=== PATIENT | male | born 1950 | race American Indian/Alaskan Native ===

== ENCOUNTER 2018-08-16 17:37 | Emergency (ER) | payer MEDICARE, OTHER ==
[2018-08-16] MEDS ORDERED: ZOFRAN IV ONE (18:41)
[2018-08-16] MEDS ORDERED: NACL 0.9% 1000 ML 1,000 ML IV ONE ×2 (18:41→20:22)
--- NOTE | 2018-08-16 19:28 | Emergency Department Report ---
ED Altered Mental Status HPI - General Chief Complaint: Altered Mental Status Stated Complaint: DIZINESS Time Seen by Provider: 08/16/18 18:19 Source: EMS Mode of arrival: Stretcher Limitations: Altered Mental Status - History of Present Illness Initial Comments: 74-year-old who presents to ED with episode of altered mental status. Patient has history of stage IV liver cancer. Recently received news from his oncologist 2 weeks ago that no additional treatment could be done. White states patient has been nauseated all day, had one episode of emesis earlier. States he decided to get up and go to the bathroom. States he sat on the commode, and possibly had a seizure. states his entire body stiffened up. His arms, legs, neck and torso were extended. states patient was unresponsive during this time, states it lasted for possibly 5 minutes, after which patient was able to slowly respond to her. However she states he still seemed confused at this time. Denies urinary incontinence. EMS was called, upon their arrival patient was hypotensive. IV fluids given and patient transported to ED. Patient has an order for DO NOT RESUSCITATE. MD Complaint: altered mental status -: This afternoon Severity: moderate Context: cancer, liver disease Associated Symptoms: nausea/vomiting. denies: chest pain, fever/chills, headaches, shortness of breath - Related Data Allergies Allergy/AdvReac Type Severity Reaction Status Date / Time No Known Allergies Allergy Verified 08/16/18 23:45 ED Review of Systems ROS: Stated complaint: DIZINESS Other details as noted in HPI Comment: All other systems reviewed and negative Constitutional: denies: chills, fever Respiratory: denies: shortness of breath Cardiovascular: denies: chest pain Gastrointestinal: abdominal pain (chronic), nausea, vomiting Neurological: denies: headache ED Past Medical Hx - Past Medical History Previous Medical History?: Yes Hx of Cancer: Yes (Liver Cancer) - Surgical History Additional Surgical History: Right chest port - Social History Smoking Status: Unknown if ever smoked Substance Use Type: None ED Physical Exam - General Limitations: Altered Mental Status General appearance: alert, cachectic - Head Head exam: Present: atraumatic, normocephalic - Eye Eye exam: Present: scleral icterus - ENT ENT exam: Present: mucous membranes dry - Neck Neck exam: Present: normal inspection - Respiratory Respiratory exam: Present: normal lung sounds bilaterally. Absent: respiratory distress - Cardiovascular Cardiovascular Exam: Present: regular rate, normal rhythm - GI/Abdominal GI/Abdominal exam: Present: soft, distended. Absent: tenderness - Neurological Exam Neurological exam: Present: alert, oriented X3 - Psychiatric Psychiatric exam: Present: flat affect - Skin Skin exam: Present: warm, dry, intact, normal color ED Course Vital Signs 08/16/18 08/16/18 08/16/18 17:58 19:00 19:35 Temperature 97.4 F L 98.2 F Pulse Rate 92 H 88 91 H Respiratory 12 17 21 Rate Blood Pressure 93/57 95/54 Blood Pressure 91/72 [Right] O2 Sat by Pulse 99 99 100 Oximetry 08/16/18 08/16/18 08/16/18 21:00 22:00 22:41 Temperature 97.6 F Pulse Rate 92 H 94 H 93 H Respiratory 13 15 12 Rate Blood Pressure 91/45 91/54 108/54 Blood Pressure [Right] O2 Sat by Pulse 100 99 100 Oximetry 08/16/18 08/16/18 08/16/18 22:51 23:00 23:10 Temperature Pulse Rate 92 H 96 H 92 H Respiratory 19 14 17 Rate Blood Pressure 108/54 99/60 102/56 Blood Pressure [Right] O2 Sat by Pulse 100 100 100 Oximetry 08/16/18 23:20 Temperature Pulse Rate 93 H Respiratory 17 Rate Blood Pressure 108/63 Blood Pressure [Right] O2 Sat by Pulse 100 Oximetry - Reevaluation(s) Reevaluation #1: 08/16/18 20:19 [facility] all [facility] are [facility]. Spoke w/ Dr Guerrero, ER attending. Accepts transfer. - Lab Data Result diagrams: 08/16/18 19:14 08/16/18 19:14 Lab Results 08/16/18 08/16/18 08/16/18 Range/Units 19:14 19:14 19:14 WBC 13.0 H (4.5-11.0) K/mm3 RBC 2.14 L (3.65-5.03) M/mm3 Hgb 6.5 L (11.8-15.2) gm/dl Hct 19.8 L* (35.5-45.6) % MCV 92 (84-94) fl MCH 30 (28-32) pg MCHC 33 (32-34) % RDW 22.7 H (13.2-15.2) % Plt Count 189 (140-440) K/mm3 Add Manual Diff Complete Total Counted 100 Seg Neuts % (Manual) 87.0 H (40.0-70.0) % Band Neutrophils % 4.0 % Lymphocytes % (Manual) 3.0 L (13.4-35.0) % Reactive Lymphs % (Man) 0 % Monocytes % (Manual) 4.0 (0.0-7.3) % Eosinophils % (Manual) 1.0 (0.0-4.3) % Basophils % (Manual) 0 (0.0-1.8) % Metamyelocytes % 1.0 % Myelocytes % 0 % Promyelocytes % 0 % Blast Cells % 0 % Nucleated RBC % Not Reportable Seg Neutrophils # Man 11.3 H (1.8-7.7) K/mm3 Band Neutrophils # 0.5 K/mm3 Lymphocytes # (Manual) 0.4 L (1.2-5.4) K/mm3 Abs React Lymphs (Man) 0.0 K/mm3 Monocytes # (Manual) 0.5 (0.0-0.8) K/mm3 Eosinophils # (Manual) 0.1 (0.0-0.4) K/mm3 Basophils # (Manual) 0.0 (0.0-0.1) K/mm3 Metamyelocytes # 0.1 K/mm3 Myelocytes # 0.0 K/mm3 Promyelocytes # 0.0 K/mm3 Blast Cells # 0.0 K/mm3 WBC Morphology Not Reportable Hypersegmented Neuts Not Reportable Hyposegmented Neuts Not Reportable Hypogranular Neuts Not Reportable Smudge Cells Not Reportable Toxic Granulation Not Reportable Toxic Vacuolation Not Reportable Dohle Bodies Not Reportable Pelger-Huet Anomaly Not Reportable Clarence Rods Not Reportable Platelet Estimate Consistent w auto Clumped Platelets Not Reportable Plt Clumps, EDTA Not Reportable Large Platelets Not Reportable Giant Platelets Not Reportable Platelet Satelliting Not Reportable Plt Morphology Comment Not Reportable RBC Morphology Not Reportable Dimorphic RBCs Not Reportable Polychromasia Not Reportable Hypochromasia 2+ Poikilocytosis 2+ Anisocytosis 2+ Microcytosis Not Reportable Macrocytosis Not Reportable Spherocytes Not Reportable Pappenheimer Bodies Not Reportable Sickle Cells Not Reportable Target Cells Few Tear Drop Cells Not Reportable Ovalocytes Few Helmet Cells Not Reportable Gray-[place]ilox[place] Bodies Not Reportable [place] Rings Not Reportable Judy Cells 1+ Bite Cells Not Reportable Crenated Cell Not Reportable Elliptocytes Not Reportable Acanthocytes (Spur) Not Reportable Rouleaux Not Reportable Hemoglobin C Crystals Not Reportable Schistocytes Few Malaria parasites Not Reportable Satish Bodies Not Reportable Hem Pathologist Commnt No PT (12.2-14.9) Sec. INR (0.87-1.13) APTT (24.2-36.6) Sec. Sodium 133 L (137-145) mmol/L Potassium 4.0 (3.6-5.0) mmol/L Chloride 97.7 L (98-107) mmol/L Carbon Dioxide 13 L (22-30) mmol/L Anion Gap 26 mmol/L BUN 7 L (9-20) mg/dL Creatinine 1.8 H (0.8-1.5) mg/dL Estimated GFR 38 ml/min BUN/Creatinine Ratio 4 % Glucose 123 H (75-100) mg/dL Lactic Acid (0.7-2.0) mmol/L Calcium 8.1 L (8.4-10.2) mg/dL Total Bilirubin 6.70 H (0.1-1.2) mg/dL AST 75 H (5-40) units/L ALT 26 (7-56) units/L Alkaline Phosphatase 217 H (35-129) units/L Ammonia 98.0 H (25-60) umol/L Total Protein 6.0 L (6.3-8.2) g/dL Albumin 2.2 L (3.9-5) g/dL Albumin/Globulin Ratio 0.6 % Blood Type Antibody Screen Crossmatch 08/16/18 08/16/18 08/16/18 Range/Units 20:55 20:55 20:55 WBC (4.5-11.0) K/mm3 RBC (3.65-5.03) M/mm3 Hgb (11.8-15.2) gm/dl Hct (35.5-45.6) % MCV (84-94) fl MCH (28-32) pg MCHC (32-34) % RDW (13.2-15.2) % Plt Count (140-440) K/mm3 Add Manual Diff Total Counted Seg Neuts % (Manual) (40.0-70.0) % Band Neutrophils % % Lymphocytes % (Manual) (13.4-35.0) % Reactive Lymphs % (Man) % Monocytes % (Manual) (0.0-7.3) % Eosinophils % (Manual) (0.0-4.3) % Basophils % (Manual) (0.0-1.8) % Metamyelocytes % % Myelocytes % % Promyelocytes % % Blast Cells % % Nucleated RBC % Seg Neutrophils # Man (1.8-7.7) K/mm3 Band Neutrophils # K/mm3 Lymphocytes # (Manual) (1.2-5.4) K/mm3 Abs React Lymphs (Man) K/mm3 Monocytes # (Manual) (0.0-0.8) K/mm3 Eosinophils # (Manual) (0.0-0.4) K/mm3 Basophils # (Manual) (0.0-0.1) K/mm3 Metamyelocytes # K/mm3 Myelocytes # K/mm3 Promyelocytes # K/mm3 Blast Cells # K/mm3 WBC Morphology Hypersegmented Neuts Hyposegmented Neuts Hypogranular Neuts Smudge Cells Toxic Granulation Toxic Vacuolation Dohle Bodies Pelger-Huet Anomaly Clarence Rods Platelet Estimate Clumped Platelets Plt Clumps, EDTA Large Platelets Giant Platelets Platelet Satelliting Plt Morphology Comment RBC Morphology Dimorphic RBCs Polychromasia Hypochromasia Poikilocytosis Anisocytosis Microcytosis Macrocytosis Spherocytes Pappenheimer Bodies Sickle Cells Target Cells Tear Drop Cells Ovalocytes Helmet Cells Gray-[place]ox[place] Bodies [place] Rings [place] Cells Bite Cells Crenated Cell Elliptocytes Acanthocytes (Spur) Rouleaux Hemoglobin C Crystals Schistocytes Malaria parasites Satish Bodies Hem Pathologist Commnt PT 30.7 H (12.2-14.9) Sec. INR 2.72 H (0.87-1.13) APTT 45.2 H (24.2-36.6) Sec. Sodium (137-145) mmol/L Potassium (3.6-5.0) mmol/L Chloride (98-107) mmol/L Carbon Dioxide (22-30) mmol/L Anion Gap mmol/L BUN (9-20) mg/dL Creatinine (0.8-1.5) mg/dL Estimated GFR ml/min BUN/Creatinine Ratio % Glucose (75-100) mg/dL Lactic Acid 12.30 H* (0.7-2.0) mmol/L Calcium (8.4-10.2) mg/dL Total Bilirubin (0.1-1.2) mg/dL AST (5-40) units/L ALT (7-56) units/L Alkaline Phosphatase (35-129) units/L Ammonia (25-60) umol/L Total Protein (6.3-8.2) g/dL Albumin (3.9-5) g/dL Albumin/Globulin Ratio % Blood Type B POSITIVE Antibody Screen Negative Crossmatch See Detail 08/16/18 Range/Units 22:41 WBC (4.5-11.0) K/mm3 RBC (3.65-5.03) M/mm3 Hgb (11.8-15.2) gm/dl Hct (35.5-45.6) % MCV (84-94) fl MCH (28-32) pg MCHC (32-34) % RDW (13.2-15.2) % Plt Count (140-440) K/mm3 Add Manual Diff Total Counted Seg Neuts % (Manual) (40.0-70.0) % Band Neutrophils % % Lymphocytes % (Manual) (13.4-35.0) % Reactive Lymphs % (Man) % Monocytes % (Manual) (0.0-7.3) % Eosinophils % (Manual) (0.0-4.3) % Basophils % (Manual) (0.0-1.8) % Metamyelocytes % % Myelocytes % % Promyelocytes % % Blast Cells % % Nucleated RBC % Seg Neutrophils # Man (1.8-7.7) K/mm3 Band Neutrophils # K/mm3 Lymphocytes # (Manual) (1.2-5.4) K/mm3 Abs React Lymphs (Man) K/mm3 Monocytes # (Manual) (0.0-0.8) K/mm3 Eosinophils # (Manual) (0.0-0.4) K/mm3 Basophils # (Manual) (0.0-0.1) K/mm3 Metamyelocytes # K/mm3 Myelocytes # K/mm3 Promyelocytes # K/mm3 Blast Cells # K/mm3 WBC Morphology Hypersegmented Neuts Hyposegmented Neuts Hypogranular Neuts Smudge Cells Toxic Granulation Toxic Vacuolation Dohle Bodies Pelger-Huet Anomaly Clarence Rods Platelet Estimate Clumped Platelets Plt Clumps, EDTA Large Platelets Giant Platelets Platelet Satelliting Plt Morphology Comment RBC Morphology Dimorphic RBCs Polychromasia Hypochromasia Poikilocytosis Anisocytosis Microcytosis Macrocytosis Spherocytes Pappenheimer Bodies Sickle Cells Target Cells Tear Drop Cells Ovalocytes Helmet Cells Gray-Biloxi Bodies [place] Rings Judy Cells Bite Cells Crenated Cell Elliptocytes Acanthocytes (Spur) Rouleaux Hemoglobin C Crystals Schistocytes Malaria parasites Satish Bodies Hem Pathologist Commnt PT (12.2-14.9) Sec. INR (0.87-1.13) APTT (24.2-36.6) Sec. Sodium (137-145) mmol/L Potassium (3.6-5.0) mmol/L Chloride (98-107) mmol/L Carbon Dioxide (22-30) mmol/L Anion Gap mmol/L BUN (9-20) mg/dL Creatinine (0.8-1.5) mg/dL Estimated GFR ml/min BUN/Creatinine Ratio % Glucose (75-100) mg/dL Lactic Acid 13.80 H* (0.7-2.0) mmol/L Calcium (8.4-10.2) mg/dL Total Bilirubin (0.1-1.2) mg/dL AST (5-40) units/L ALT (7-56) units/L Alkaline Phosphatase (35-129) units/L Ammonia (25-60) umol/L Total Protein (6.3-8.2) g/dL Albumin (3.9-5) g/dL Albumin/Globulin Ratio % Blood Type Antibody Screen Crossmatch - EKG Data -: EKG Interpreted by Me EKG shows normal: sinus rhythm, axis, QRS complexes, ST-T waves Rate: normal Interpretation: no acute changes, other (prolonged QT) - Radiology Data Radiology results: report reviewed, image reviewed - Medical Decision Making 67-year-old male with stage 4 liver cancer presents to ED following an episode of altered mental status at home. Upon arrival patient hypotensive. Patient is afebrile, not tachycardic. Patient's only complaint has been nausea. Reports chronic right-sided abdominal pain. Spoke with the patient and regarding end-of-life care such as hospice. Patient was informed two weeks ago that he is no longer a candidate for treatment of his cancer, as it is not helping and his cancer continues to progress. The patient is not currently in hospice care, but does have a DO NOT RESUSCITATE order. States they plan to move to [place], [place] at the end of the month to be closer to family. I spoke with patient and regarding the treatment that he would like to receive today, as reports that he recently had a prolonged stay in the hospital that lasted 1-2 months. I asked patient if he wanted to be readmitted to the hospital to workup the cause of his episode today or if patient would like nothing done and possibly enter hospice care. Patient states "I don't know." states she was mostly curious to know his bilirubin levels and ammonia levels. She also requested transfer to the [facility] as all of patient's care has been at that facility. Since patient and were unsure of the level of care that he wanted to receive, full workup was done. Patient has elevated WBCs at 14, extremely elevated lactic acid 14, anemia with hemoglobin of 6.5. Liver function studies are abnormal which is to be expected. Ammonia level mildly elevated at 95, however patient is alert and oriented. CT head was negative. The episode described by the earlier at home could have possibly been a seizure. Patient has been resuscitated with 30 cc/kg IV fluids, and also given one dose of antibiotics. The patient is improved with systolic BP of 105. Patient will be receiving one unit of PRBCs for his anemia. I spoke with the attending at the [place], Dr. Guerrero. He accepts patient in transfer to the ED. I expressed to pt's that he is in very critical condition and this may well be progression of disease toward end of life. - Differential Diagnosis brain metastasis, infection, seizure, electrolyte abnormality Critical Care Time: Yes Critical care time in (mins) excluding proc time.: 60 Critical care attestation.: If time is entered above; I have spent that time in minutes in the direct care of this critically ill patient, excluding procedure time. Critical Care Time: 60 minutes ED Disposition Clinical Impression: Liver cancer, Seizure, Sepsis, Anemia Disposition: [id number]/[place]-[id number] ANOTHER TYPE HLTHCARE Is pt being admited?: No Condition: Stable Referrals: RIZWAN BACA MD [Primary Care Provider] - 3-5 Days Time of Disposition: 22:39
[2018-08-16 19:43] LABS: Albumin 2.2 g/dL (3.9-5); Calcium 8.1 mg/dL (8.4-10.2)
[2018-08-16 19:48] LABS: Hemoglobin 6.5 gm/dl (11.8-15.2); Mean Corpuscular HGB Conc 33 % (32-34); Mean Corpuscular Volume 92 fl (84-94); Platelet Count 189 K/mm3 (140-440); Red Blood Count 2.14 M/mm3 (3.65-5.03)
[2018-08-16 19:54] LABS: Hematocrit 19.8 % (35.5-45.6); Red Cell Distribution Width 22.7 % (13.2-15.2)
[2018-08-16] MEDS ORDERED: ZOSYN/NS 4.5GM/100ML 4.5 GM/100 ML VIAL IV ONE (20:12)
[2018-08-16] MEDS ORDERED: NACL 0.9% 500 ML 500 ML IV ONE (20:18)
[2018-08-16 20:25] LABS: Anisocytosis 2+; Band Neutrophils # (Manual) 0.5 K/mm3; Basophils % (Manual) 0 % (0.0-1.8); Burr Cells 1+; Hypochromasia 2+; Poikilocytosis 2+; Total Cells Counted 100
[2018-08-16 20:26] LABS: Ovalocytes Few; Schistocytes Few; Target Cells Few
[2018-08-16 20:27] LABS: Platelet Estimate Consistent w Auto
[2018-08-16 22:07] LABS: INR 2.72 (0.87-1.13); Partial Thromboplastin Time 45.2 Sec. (24.2-36.6)
--- NOTE | 2018-08-16 22:14 | XRay Report ---
FINAL REPORT EXAM: XR CHEST 1V AP HISTORY: ams TECHNIQUE: Frontal portable view of the chest Comparison: None FINDINGS: A right port catheter is demonstrated with the tip projected in the region the right atrium. There prominence of the interstitial markings in both lungs, acute versus chronic. There are patchy areas of pulmonary consolidation in both lung bases. Atelectasis versus infiltrates. There is no evidence of pneumothorax or pleural fluid collection. The cardiac silhouette appears to be normal size. The thoracic aorta is tortuous with atherosclerotic vascular calcification. The bony structures are unremarkable. Visualization detail of the thoracic spine is limited. There appear to be embolization coils demonstrated in the visualized portion the upper abdomen. There is a paucity of bowel gas in the upper abdomen. IMPRESSION: 1. Prominence of the interstitial markings bilaterally, acute versus chronic and atelectasis versus i nfiltrates both lung bases. Comparison with previous chest x-ray or previous chest CT would be helpful. 2. Right port catheter with tip projected in the region the right atrium. 3. Appearance of embolization coils in the visualized portion the upper abdomen. 4. Paucity of bowel gas in the upper abdomen.
[2018-08-16] MEDS ORDERED: NACL 0.9% 500 ML 500 ML ONE (22:32)
[2018-08-16 23:27] VITALS: BP 108/63
--- NOTE | 2018-08-18 15:55 | Cat Scan Report ---
FINAL REPORT EXAM: CT HEAD/BRAIN WO CON HISTORY: seizure, h/o stage 4 liver cancer TECHNIQUE: Standard unenhanced CT of the head at 5.0 millimeter axial increments. PRIORS: None. FINDINGS: The ventricular system is normal in size and configuration. There is no evidence for parenchymal volu me loss. There is no evidence for mass lesion, mass effect, midline shift, acute intracranial hemorrhage, or a cute ischemia/ infarction. No evidence for acute skull fracture is seen. No abnormality in the overlying scalp soft tissues is seen. Visualized paranasal sinuses are clear. IMPRESSION: Negative CT of the head. No acute intracranial process noted.
== END 2018-08-16 23:44 | disposition other institution (70) ==
LOC: ED 17:37
DX: C22.9 Malignant neoplasm of liver, not specified as primary or secondary (principal); A41.9 Sepsis, unspecified organism; D64.9 Anemia, unspecified; R56.9 Unspecified convulsions
CPT/HCPCS: 36415; 36430; 70450; 71045; 80053; 82140; 85007; 85025; 85610; 85730; 86850; 86900; 86901; 86920; 87040; 93005; 96361; 96365; 96375; 99291; J2405; J2543; J7030; J7040; P9016